=== PATIENT | male | born 1965 | race Two or more races ===

== ENCOUNTER 2022-06-04 11:42 | Inpatient (IN) | payer MEDICAID ==
[~2022-06-04] VITALS: Ht 170.2 cm; Wt 86.5 kg
[2022-06-04 12:19] LABS: Urine WBC None Seen /hpf (0 - 3)
[2022-06-04 12:30] LABS: Urine Bacteria NONE SEEN /hpf (None Seen); Urine Blood 2+ /uL (Negative); Urine Mucus FEW (None Seen); Urine Specific Gravity 1.019 (1.001-1.035)
[2022-06-04] MEDS ORDERED: TAMSULOSIN HYDROCHLORIDE 0.4 MG CAP PO ONE (12:30)
[2022-06-04] MEDS ORDERED: KETOROLAC TROMETH 30 MG/ML 1ML VIAL IV ONE (12:30)
[2022-06-04] MEDS ORDERED: FUROSEMIDE 40 MG/4 ML VIAL IV ONE (12:30)
[2022-06-04] MEDS ORDERED: SODIUM CHLORIDE 0.9% 1,000 ML IV ONE ×2 (12:30)
[2022-06-04] MEDS ORDERED: DOCUSATE SOD 100 MG CAP PO PRN (15:30)
[2022-06-04] MEDS ORDERED: ONDANSETRON HCL 4 MG/2 ML VIAL IV PRN (15:30)
[2022-06-04 15:58] LABS: Basophils # (auto) 0.1 10 ^3/uL (0-0.2); Basophils % (auto) 0.6 % (0.0-2.0); Eosinophils # (auto) 0.2 10 ^3/uL (0-0.8); Eosinophils % (auto) 1.4 % (0.0-7.0); Hemoglobin 14.6 g/dL (13.5-17.5); Lymphocytes # (auto) 3.8 10 ^3/uL (0.4-5.4); Lymphocytes % (auto) 28.3 % (10.0-50.0); Mean Corpuscular Hemoglobin 28.9 pg (28.0-32.0); Monocytes # (auto) 1.6 10 ^3/uL (0-1.3); Monocytes % (auto) 11.4 % (0.0-12.0); Neutrophils # (auto) 7.9 10 ^3/uL (1.6-8.6); Neutrophils % (auto) 58.3 % (37.0-80.0); Nucleated Red Blood Cells % 0.2 %; Red Blood Cells 5.05 10^6/uL (4.5-5.90); Red Cell Distribution Width 13.1 % (11.8-14.3); White Blood Cell 13.5 10^3/uL (4.4-10.8)
[2022-06-04 16:12] LABS: INR 0.94 (0.9-1.15)
[2022-06-04 16:14] LABS: Albumin 3.7 g/dL (3.4-5.0); Calcium 9.2 mg/dL (8.5-10.1); Potassium 3.7 mmol/L (3.5-5.1)
[2022-06-04] MEDS: SODIUM CHLORIDE 0.9% 1,000 ML IV SCH ×2 (16:16→18:40)
[2022-06-04 16:17] LABS: BUN/Creatinine Ratio 15.2; Bilirubin, Total 0.5 mg/dL (0.2-1.0); Total Protein 7.8 g/dL (6.4-8.2)
[2022-06-04] MEDS ORDERED: TAMSULOSIN HYDROCHLORIDE 0.4 MG CAP PO SCH (18:00)
[2022-06-04 20:00] VITALS: BP 115/75
[2022-06-04] MEDS ORDERED: GABA100C9 PO (21:06)
[2022-06-04] MEDS ORDERED: OMEP20TA PO (21:11)
[2022-06-04] MEDS ORDERED: ACET30TA15 PO (21:11)
[2022-06-04] MEDS ORDERED: TAM04C PO (21:14)
[2022-06-04] MEDS ORDERED: ADAL40IN2 SC (21:14)
[2022-06-04] MEDS: metroNIDAZOLE 500MG/100ML 100 ML IV SCH (21:42)
[2022-06-04] MEDS: MORPHINE SULFATE INJ 2 MG/ml SYRG IV PRN (21:43)
[2022-06-04 22:00] VITALS: BP 116/75
[2022-06-05] MEDS ORDERED: TEMAZEPAM 15 MG CAP PO ONE (00:45)
[2022-06-05 05:00] VITALS: BP 115/83
[2022-06-05] MEDS ORDERED: DICL1GEL72 EX (05:12)
[2022-06-05 05:17] LABS: Basophils # (auto) 0 10 ^3/uL (0-0.2); Basophils % (auto) 0.4 % (0.0-2.0); Eosinophils # (auto) 0.1 10 ^3/uL (0-0.8); Eosinophils % (auto) 1.2 % (0.0-7.0); Hematocrit 38.3 % (41.0-53.0); Lymphocytes # (auto) 2.8 10 ^3/uL (0.4-5.4); Lymphocytes % (auto) 28.4 % (10.0-50.0); Mean Corpuscular Hemoglobin 28.7 pg (28.0-32.0); Mean Corpuscular Volume 84.3 fL (80.0-100.0); Monocytes # (auto) 1.3 10 ^3/uL (0-1.3); Monocytes % (auto) 13.4 % (0.0-12.0); Neutrophils # (auto) 5.7 10 ^3/uL (1.6-8.6); Neutrophils % (auto) 56.6 % (37.0-80.0); Nucleated Red Blood Cells % 0.1 %; Red Blood Cells 4.54 10^6/uL (4.5-5.90); Red Cell Distribution Width 13.5 % (11.8-14.3)
[2022-06-05] MEDS: SODIUM CHLORIDE 0.9% 1,000 ML IV SCH (05:31)
[2022-06-05] MEDS: metroNIDAZOLE 500MG/100ML 100 ML IV SCH ×2 (05:31→13:46)
[2022-06-05 09:00] VITALS: BP 120/57
[2022-06-05] MEDS: MORPHINE SULFATE INJ 2 MG/ml SYRG IV PRN (09:00)
[2022-06-05] MEDS ORDERED: cefTRIAXone 1GM/50ML D5W 50 ML IV SCH (09:00)
[2022-06-05] MEDS ORDERED: ENOXAPARIN SOD 40 MG/0.4 ML SYRINGE SC SCH (10:00)
[2022-06-05] MEDS ORDERED: MANNITOL FTV 25% 12.5 GM/50 ML 50 ML IV ONE (10:15)
[2022-06-05 13:00] VITALS: BP 136/74
[2022-06-05] MEDS ORDERED: CIPR-173 PO (16:26)
[2022-06-05] MEDS ORDERED: HYDR-4902 PO (16:26)
== END 2022-06-05 18:28 | disposition home health service (06) | DRG 465 ==
LOC: ER 11:42 → OVERFLOW 15:26 → WEST WING 18:28
PROVIDERS: ADMIT Nurse Practitioner Family; ATTEND Internal Medicine
DX: N20.2 Calculus of kidney with calculus of ureter (principal); E11.42 Type 2 diabetes mellitus with diabetic polyneuropathy; K65.4 Sclerosing mesenteritis; I10 Essential (primary) hypertension; I88.9 Nonspecific lymphadenitis, unspecified; K21.9 Gastro-esophageal reflux disease without esophagitis; K62.89 Other specified diseases of anus and rectum; Z20.822 Contact with and (suspected) exposure to COVID-19; M06.9 Rheumatoid arthritis, unspecified; Z79.620 Long term (current) use of immunosuppressive biologic; Z85.841 Personal history of malignant neoplasm of brain; Z79.899 Other long term (current) drug therapy
CPT/HCPCS: 36415; 74018; 74176; 76775; 80053; 81001; 85025; 85610; 87426; 96361; 96374; 96375; G0378; J0696; J1885; J3490